=== PATIENT | male | born 1940 | race Caucasian/White ===

== ENCOUNTER 2022-07-06 10:02 | Outpatient (CLI) | payer MEDICARE ==
[2022-07-06 12:33] LABS: #Eosinphils 0.1 10x3/uL (0.0-0.5); #Monocytes 0.4 10x3/uL (0.0-1.1); #Neutrophils 3.7 10x3/uL (1.5-8.4); %Basophils 0.6 % (0.0-2.0); %Eosinophils 2.4 % (0.0-6.0); %Lymphocytes 15.3 % (18.0-47.0); %Monocytes 7.1 % (0.0-10.0); %Neutrophils 74.2 % (40.0-75.0); Hemoglobin 13.3 g/dL (13.5-17.5); Mean Corpuscular HGB CONC 34.3 g/dL (32.0-36.0); Mean Corpuscular Hemoglobin 32.3 pg (27.0-33.0); Mean Corpuscular Volume 94.2 fl (81.2-95.1); Mean Platelet Volume 9.9 fl (7.4-10.4); Platelet Count 204 10x3/uL (150-450); RBC Distribution Width 12.4 % (11.5-14.5); Red Blood Cell (RBC) Count 4.12 10x6/uL (4.32-5.72)
[2022-07-06 12:54] LABS: Anion Gap 12 mmol/L (10-20); BUN (Urea Nitrogen) 22 mg/dL (8.4-25.7); Calc. Creatinine Clearance 0 mL/min (70-130); Carbon Dioxide 29 mmol/L (23-31); Chloride 103 mmol/L (98-107); Estimated GFR 70; Glucose 99 mg/dL (83-110); Potassium 4.2 mmol/L (3.5-5.1); Sodium 140 mmol/L (136-145)
[2022-07-06 13:11] LABS: INR-International Normal Ratio 0.9; Prothrombin Time 10.3 sec (9.5-12.1)
== END 2022-07-06 10:03 | disposition home or self-care (01) ==
LOC: LABBT 10:02
PROVIDERS: ATTEND Orthopaedic Surgery
DX: Z01.818 Encounter for other preprocedural examination (principal); M16.12 Unilateral primary osteoarthritis, left hip
CPT/HCPCS: 80048; 85025; 85610; 87081; 93005; 93010

== ENCOUNTER 2022-07-13 19:09 | Inpatient (IN) | payer MEDICARE, OTHER ==
[2022-07-13] MEDS ORDERED: Morphine 4 MG/ML VIAL ONE (20:47)
[2022-07-14] MEDS ORDERED: Ondansetron PF 4 MG/2 ML Vial IVP PRN (06:37)
[2022-07-14] MEDS ORDERED: Ondansetron ODT 4 MG TAB PO PRN (06:37)
[2022-07-14] MEDS ORDERED: Acetaminophen 650 MG Suppository PR PRN (06:37)
[2022-07-14 07:26] LABS: #Lymphocytes 0.4 thou/uL (1.20-3.40); #Monocytes 0.5 thou/uL (0.11-0.59); #Neutrophils 4.4 thou/uL (1.40-6.50); %Eosinophils 0.7 % (0.0-10.0); %Lymphocytes 7.2 % (21.0-51.0); %Monocytes 8.9 % (0.0-10.0); %Neutrophils 83.3 % (42.0-75.0); Hemoglobin 10.4 g/dL (14.0-18.0); Mean Corpuscular HGB CONC 35.8 g/dL (32.0-36.0); Mean Corpuscular Hemoglobin 34.7 pg (27.0-31.0); Mean Corpuscular Volume 96.9 fl (78.0-98.0); Mean Platelet Volume 7.1 fL (7.4-10.4); Platelet Count 128 10x3/uL (130-400); RBC Distribution Width 11.2 % (11.5-14.5); Red Blood Cell (RBC) Count 2.99 mill/uL (4.70-6.10); White Blood Cell (WBC) Count 5.2 10x3/uL (4.8-10.8)
[2022-07-14 07:44] LABS: Anion Gap 10 mmol/L (10-20); BUN (Urea Nitrogen) 26 mg/dL (8.4-25.7); Calc. Creatinine Clearance 42 mL/min (70-130); Calcium 9.5 mg/dL (7.8-10.44); Carbon Dioxide 27 mmol/L (23-31); Chloride 103 mmol/L (98-107); Estimated GFR 70; Glucose 104 mg/dL (83-110); Potassium 4.2 mmol/L (3.5-5.1); Sodium 136 mmol/L (136-145)
[2022-07-14] MEDS: Aspirin 81 mg Enteric Coated Tablet PO SCH ×2 (09:48→21:19)
[2022-07-14] MEDS: Acetaminophen 325 MG TAB PO PRN (09:49)
[2022-07-14] MEDS: Carbidopa/Levodopa 25-100 mg Tablet PO SCH ×3 (09:49→21:19)
[2022-07-14] MEDS: Enoxaparin Sodium 40 MG/0.4 ML SYRINGE SC SCH (09:50)
[2022-07-14 11:57] VITALS: BMI 17.5
[2022-07-14] MEDS: traMADol HCl 50 MG TAB PO PRN (14:09)
[2022-07-14] MEDS ORDERED: Latanoprostene Bunod [Vyzulta] 5 ML Drops EA EYE SCH (21:00)
[2022-07-14] MEDS: DorzolamidE/Timolol 2%/0.5% Ophth Soln 10 ml Bottle EA EYE SCH ×2 (21:22→21:40)
[2022-07-15] MEDS: Enoxaparin Sodium 40 MG/0.4 ML SYRINGE SC SCH (08:16)
[2022-07-15] MEDS: Carbidopa/Levodopa 25-100 mg Tablet PO SCH ×3 (08:16→20:54)
[2022-07-15] MEDS: Aspirin 81 mg Enteric Coated Tablet PO SCH ×2 (08:16→20:54)
[2022-07-15] MEDS: DorzolamidE/Timolol 2%/0.5% Ophth Soln 10 ml Bottle EA EYE SCH ×2 (08:16→20:55)
[2022-07-15] MEDS: Acetaminophen 325 MG TAB PO PRN (08:21)
[2022-07-15] MEDS: traMADol HCl 50 MG TAB PO PRN (14:57)
[2022-07-16] MEDS: traMADol HCl 50 MG TAB PO PRN (04:51)
[2022-07-16] MEDS: Carbidopa/Levodopa 25-100 mg Tablet PO SCH ×3 (08:26→21:10)
[2022-07-16] MEDS: Aspirin 81 mg Enteric Coated Tablet PO SCH ×2 (08:27→21:10)
[2022-07-16] MEDS: Enoxaparin Sodium 40 MG/0.4 ML SYRINGE SC SCH (08:27)
[2022-07-16] MEDS: DorzolamidE/Timolol 2%/0.5% Ophth Soln 10 ml Bottle EA EYE SCH ×2 (08:28→21:11)
[2022-07-16] MEDS ORDERED: FLU VACC QS2022-23(65YR UP)/PF 240 MCG/0.7 ML SYRINGE IM ONE (09:00)
[2022-07-16] MEDS ORDERED: Bisacodyl 10 MG SUPP PR PRN (09:30)
[2022-07-16] MEDS ORDERED: Bisacodyl 10 MG SUPP PR SCH (09:45)
[2022-07-16] MEDS: Senokot S 8.6-50 MG TAB PO SCH (21:10)
[2022-07-16] MEDS: Acetaminophen 325 MG TAB PO PRN (21:10)
[2022-07-17] MEDS: Aspirin 81 mg Enteric Coated Tablet PO SCH ×2 (08:25→21:04)
[2022-07-17] MEDS: Carbidopa/Levodopa 25-100 mg Tablet PO SCH ×3 (08:25→21:04)
[2022-07-17] MEDS: traMADol HCl 50 MG TAB PO PRN (08:25)
[2022-07-17] MEDS: Enoxaparin Sodium 40 MG/0.4 ML SYRINGE SC SCH (08:26)
[2022-07-17] MEDS: Polyethylene Glycol 3350 17 GM Packet PO SCH (08:26)
[2022-07-17] MEDS: DorzolamidE/Timolol 2%/0.5% Ophth Soln 10 ml Bottle EA EYE SCH ×2 (10:43→21:03)
[2022-07-17] MEDS: Senokot S 8.6-50 MG TAB PO SCH ×2 (10:45→21:04)
[2022-07-17] MEDS ORDERED: Fleet Enema 133 ML BOT FS SCH (14:00)
[2022-07-17] MEDS: GoLYTELY 4,000 ml Bottle PO SCH (19:11)
[2022-07-18] MEDS: Enoxaparin Sodium 40 MG/0.4 ML SYRINGE SC SCH (09:49)
[2022-07-18] MEDS: Carbidopa/Levodopa 25-100 mg Tablet PO SCH ×3 (09:50→21:58)
[2022-07-18] MEDS: GoLYTELY 4,000 ml Bottle PO SCH (09:50)
[2022-07-18] MEDS: Aspirin 81 mg Enteric Coated Tablet PO SCH ×2 (09:50→21:58)
[2022-07-18] MEDS: traMADol HCl 50 MG TAB PO PRN (09:51)
[2022-07-18] MEDS: DorzolamidE/Timolol 2%/0.5% Ophth Soln 10 ml Bottle EA EYE SCH ×2 (09:51→21:58)
[2022-07-18] MEDS: Senokot S 8.6-50 MG TAB PO SCH ×2 (09:54→21:58)
[2022-07-18] MEDS: Polyethylene Glycol 3350 17 GM Packet PO SCH (09:54)
[2022-07-19] MEDS: Carbidopa/Levodopa 25-100 mg Tablet PO SCH (08:36)
[2022-07-19] MEDS: Senokot S 8.6-50 MG TAB PO SCH (08:36)
[2022-07-19] MEDS: Polyethylene Glycol 3350 17 GM Packet PO SCH (08:36)
[2022-07-19] MEDS: Aspirin 81 mg Enteric Coated Tablet PO SCH (08:36)
[2022-07-19] MEDS: Enoxaparin Sodium 40 MG/0.4 ML SYRINGE SC SCH (08:37)
[2022-07-19] MEDS: DorzolamidE/Timolol 2%/0.5% Ophth Soln 10 ml Bottle EA EYE SCH (08:41)
[2022-07-19] MEDS: traMADol HCl 50 MG TAB PO PRN (09:56)
[2022-07-19 11:42] VITALS: BP 99/58; TEMP 98.7
== END 2022-07-19 12:00 | DRG 948 ==
LOC: ERS 19:09 → SURG B 21:31 → OBSVTOIN 07-16 17:08
PROVIDERS: ADMIT Student in an Organized Health Care Education/Training Program; ATTEND Internal Medicine
DX: R53.81 Other malaise (principal); E44.1 Mild protein-calorie malnutrition; Z68.1 Body mass index [BMI] 19.9 or less, adult; I10 Essential (primary) hypertension; G20 Parkinson's disease; Z96.642 Presence of left artificial hip joint; M19.90 Unspecified osteoarthritis, unspecified site; Z79.899 Other long term (current) drug therapy; Z87.891 Personal history of nicotine dependence; K59.00 Constipation, unspecified
CPT/HCPCS: 36415; 80048; 85025; 96372; 96374; G0378; J1650; J2270; U0003; U0005

== ENCOUNTER 2022-07-29 12:28 | Emergency (ER) | payer MEDICARE ==
[2022-07-29 13:38] LABS: #Eosinphils 0.2 thou/uL (0.0-0.7); #Lymphocytes 0.7 thou/uL (1.20-3.40); #Monocytes 0.4 thou/uL (0.11-0.59); #Neutrophils 3.6 thou/uL (1.40-6.50); %Eosinophils 3.2 % (0.0-10.0); %Lymphocytes 14.6 % (21.0-51.0); %Monocytes 7.7 % (0.0-10.0); %Neutrophils 74.5 % (42.0-75.0); Hemoglobin 9.6 g/dL (14.0-18.0); Mean Corpuscular HGB CONC 33.1 g/dL (32.0-36.0); Mean Corpuscular Hemoglobin 33.3 pg (27.0-31.0); Mean Platelet Volume 6.8 fL (7.4-10.4); Platelet Count 316 10x3/uL (130-400); RBC Distribution Width 11.7 % (11.5-14.5); White Blood Cell (WBC) Count 4.9 10x3/uL (4.8-10.8)
[2022-07-29 14:01] LABS: ALT (SGPT) Less than 7 U/L (8-55); AST (SGOT) 11 U/L (5-34); Albumin 3.7 g/dL (3.4-4.8); Alkaline Phosphatase 133 U/L (40-110); Anion Gap 12 mmol/L (10-20); BUN (Urea Nitrogen) 18 mg/dL (8.4-25.7); Bilirubin, Total 0.5 mg/dL (0.2-1.2); Calc. Creatinine Clearance 0 mL/min (70-130); Calcium 9.2 mg/dL (7.8-10.44); Carbon Dioxide 25 mmol/L (23-31); Chloride 105 mmol/L (98-107); Estimated GFR 66; Globulin 2.5 g/dL (2.4-3.5); Glucose 100 mg/dL (83-110); Potassium 4.2 mmol/L (3.5-5.1); Protein, Total 6.2 g/dL (5.8-8.1); Sodium 138 mmol/L (136-145)
== END 2022-07-29 15:15 | disposition home or self-care (01) ==
LOC: ERS 12:28
DX: K92.1 Melena (principal); D63.8 Anemia in other chronic diseases classified elsewhere; I10 Essential (primary) hypertension; Z79.82 Long term (current) use of aspirin; Z87.891 Personal history of nicotine dependence; Z79.899 Other long term (current) drug therapy
CPT/HCPCS: 36415; 80053; 82274; 85025; 86850; 86900; 86901; 99284